=== PATIENT | male | born 1940 ===

== ENCOUNTER 2021-04-04 12:47 | Observation (INO) ==
[~2021-04-04 12:47] MED LIST: Buffered Lidocaine 1% SYRIN 1 ml INTRADERM ONE; Lactated Ringers 1000 ml BAG 1,000 ML IV SCH
[2021-04-04] MEDS ORDERED: Propofol 10 MG/ML 20 ML BTL ONE (13:55)
[2021-04-04] MEDS ORDERED: fentaNYL 100 mcg/2 ml 50 MCG/ML VIAL ONE ×2 (13:56→16:25)
[2021-04-04] MEDS ORDERED: ceFAZolin 2 GM PREMIX 2 GM/50 ML BAG ONE (14:17)
[2021-04-04] MEDS ORDERED: Ropivacaine 5 MG/ML 20 ML VIAL 0.5% (100 MG) ONE (14:27)
[2021-04-04 14:32] LABS: Hematocrit 41 % (42-52); Hemoglobin 14.1 g/dL (14.0-18.0); Mean Corpuscular HGB Conc 35 g/dL (31-36); Mean Corpuscular Hemoglobin 30 pg (27-31); Mean Corpuscular Volume 87 fL (80-94); Mean Platelet Volume 7.9 fL (7.4-10.4); Platelet Count 263 10^3/uL (150-450); Red Blood Count 4.69 10^6 /uL (4.18-5.48); Red Cell Distribution Width 13 % (10-15)
[2021-04-04] MEDS ORDERED: Lidocaine 2% PF 5 ML VIAL ONE (14:58)
[2021-04-04] MEDS ORDERED: Ondansetron 4 mg VIAL 2 MG/ML 2 ml VIAL ONE (14:58)
[2021-04-04] MEDS ORDERED: Rocuronium 50 mg VIAL 10 mg/ml 5 ml VIAL (50 mg) ONE (14:58)
[2021-04-04] MEDS ORDERED: Dexamethasone IV 4 MG/ML VIAL 1 ml VIAL ONE (14:58)
[2021-04-04] MEDS ORDERED: Ketamine HCL 50 mg/ml 10 ml VIAL (500 MG) ONE (15:48)
[2021-04-04] MEDS ORDERED: Acetaminophen IV 1 GM/100ML 100 ML ONE (16:09)
[2021-04-04] MEDS ORDERED: Phenylephrine 40 mcg/mL 10mL (400mcg) SYRINGE ONE (16:12)
[2021-04-04] MEDS ORDERED: Naloxone 0.4 mg VIAL 0.4 mg/ml 1 ml VIAL IV PRN (16:18)
[2021-04-04] MEDS ORDERED: fentaNYL 100 mcg/2 ml 50 MCG/ML VIAL IV PRN (16:18)
[2021-04-04] MEDS ORDERED: oxyCODONE/Acetamin 5/325 mg TAB PO PRN (16:32)
[2021-04-04] MEDS ORDERED: Magnesium Hydroxide LIQ 30 ML UDC PO PRN (16:32)
[2021-04-04] MEDS ORDERED: Ondansetron ODT 4 mg TAB 4 MG TAB PO PRN (16:32)
[2021-04-04] MEDS ORDERED: Ondansetron 4 mg VIAL 2 MG/ML 2 ml VIAL IV PRN (16:32)
[2021-04-04] MEDS ORDERED: Lactulose 30 ml UDC PO PRN (16:32)
[2021-04-04] MEDS ORDERED: diPHENhydraMINE IV 50 MG/ML 1 ml VIAL (BENADRYL) IV PRN (16:32)
[2021-04-04] MEDS ORDERED: Morphine 2 MG/ML SYRINGE IV PRN (16:32)
[2021-04-04] MEDS ORDERED: diPHENhydraMINE 25 mg TAB PO PRN (16:32)
[2021-04-04] MEDS ORDERED: EPHEDrine (Pressors) 50 MG/ML VIAL ONE (17:07)
[2021-04-04] MEDS ORDERED: Albuterol HFA INHALER 8 gm MDI INH PRN (19:01)
[2021-04-04] MEDS: Lactated Ringers 1000 ml BAG 1,000 ML IV SCH (20:09)
[2021-04-04] MEDS: Magnesium Hydroxide LIQ 30 ML UDC PO SCH (20:54)
[2021-04-04] MEDS ORDERED: Aspirin EC 81 mg TAB.EC (enteric coated) PO SCH (21:00)
[2021-04-04] MEDS: ceFAZolin 1 GM ADVAN 1 GM in NS 0.9% 50 ML 50 ML IVPB SCH (23:52)
[2021-04-05] MEDS: Lactated Ringers 1000 ml BAG 1,000 ML IV SCH (04:36)
[2021-04-05 05:32] LABS: Hematocrit 35 % (42-52); Hemoglobin 11.7 g/dL (14.0-18.0); Mean Platelet Volume 8.1 fL (7.4-10.4); Platelet Count 231 10^3/uL (150-450)
[2021-04-05 05:49] LABS: Calcium 8.2 mg/dL (8.6-10.3); EGFR African American 75.9 (>60); EGFR Non-African American 62.8 (>60); Potassium 4.4 mmol/L (3.5-5.0)
[2021-04-05] MEDS: ceFAZolin 1 GM ADVAN 1 GM in NS 0.9% 50 ML 50 ML IVPB SCH ×2 (08:34→15:18)
[2021-04-05] MEDS: Magnesium Hydroxide LIQ 30 ML UDC PO SCH (08:38)
[2021-04-05] MEDS ORDERED: Vitamin THERAPEUTIC TAB PO SCH (09:00)
[2021-04-05 15:58] VITALS: BP 114/58
== END 2021-04-05 16:20 | disposition home or self-care (01) ==
LOC: OR 12:47 → SSU 12:47
PROVIDERS: ADMIT Orthopaedic Surgery Adult Reconstructive Orthopaedic Surgery; ATTEND Orthopaedic Surgery Adult Reconstructive Orthopaedic Surgery